=== PATIENT | male | born 1970 | race African-American/Black ===

== ENCOUNTER 2018-03-31 10:27 | Emergency (ER) | payer SELFPAY ==
[~2018-03-31] VITALS: Ht 170.2 cm; Wt 63.6 kg
[2018-03-31] MEDS ORDERED: LORazepam 2 MG TABLET PO ONE (11:30)
[2018-03-31 13:01] VITALS: BP 111/89
== END 2018-03-31 12:55 | disposition home or self-care (01) ==
LOC: EMS 10:27
DX: F41.0 Panic disorder [episodic paroxysmal anxiety] (principal); R07.9 Chest pain, unspecified; F17.210 Nicotine dependence, cigarettes, uncomplicated; I10 Essential (primary) hypertension
CPT/HCPCS: 93005